=== PATIENT | male | born 1980 | race Caucasian/White ===

== ENCOUNTER 2017-04-23 02:15 | Emergency (ER) | payer MEDICAID ==
[~2017-04-23] VITALS: Ht 182.9 cm; Wt 85.4 kg
[2017-04-23 02:16] VITALS: BP 109/73
== END 2017-04-23 03:24 | disposition home or self-care (01) ==
LOC: ED 02:45
DX: B34.9 Viral infection, unspecified (principal)
CPT/HCPCS: 99283